=== PATIENT | male | born 2000 | race Hispanic/Latino ===

== ENCOUNTER 2022-11-22 10:01 | Emergency (ER) | payer BC ==
[~2022-11-22] VITALS: Ht 182.9 cm; Wt 122.5 kg
== END 2022-11-22 13:23 | disposition home or self-care (01) ==
LOC: ER 10:19
DX: R10.11 Right upper quadrant pain (principal); R07.89 Other chest pain; M79.18 Myalgia, other site
CPT/HCPCS: 99282